=== PATIENT | female | born 1985 | race Caucasian/White ===

== ENCOUNTER 2023-11-18 16:31 | Inpatient (IN) ==
[2023-11-18 18:10] LABS: ABS Basophils 0.1 10^3/uL (0.0-0.1); ABS Eosinophils 0.1 10^3/uL (0.0-0.5); ABS Lymphocytes 1.9 10^3/uL (1.0-4.8); ABS Monocytes 0.5 10^3/uL (0.0-0.9); ABS Neutrophils 5.7 10^3/uL (1.5-7.6); Eosinophil % 0.8 %; Hematocrit 40.8 % (35-45); Hemoglobin 13.9 g/dL (11.5-14.3); Lymphocyte % 23.3 %; Mean Corpuscular Hemoglobin 30.7 pg (27-33); Mean Corpuscular Hgb Conc 34.1 g/dL (31-36); Mean Corpuscular Volume 90.1 fL (80-97); Mean Platelet Volume 8.5 fL (7.5-11.2); Platelet Count 233 10^3/uL (150-450); Red Blood Count 4.53 10^6/uL (3.63-4.92); Red Cell Distribution Width 12.7 % (12-17); White Blood Count 8.3 10^3/uL (3.8-11.8)
[2023-11-18 18:15] LABS: Urine Appearance Turbid; Urine Bilirubin Negative (Negative); Urine Blood 3+ (Negative); Urine Color Colorless; Urine Glucose Negative (Negative); Urine Ketones 1+ (Negative); Urine Nitrite Negative (Negative); Urine Protein Trace (Negative); Urine Specific Gravity 1.009 (1.002-1.030); Urine Urobilinogen Negative (Negative); Urine pH 5.5 (5.0-8.0)
[2023-11-18 18:28] LABS: Urine Benzodiazepine Screen Presumptive Positive (None Detect); Urine Cannabinoids Screen Presumptive Positive (None Detect); Urine Opiates Screen None Detected (None Detect)
[2023-11-18 18:33] LABS: ALT 22 U/L (7-52); AST 29 U/L (13-39); Acetaminophen < 15 mcg/mL; Albumin 4.5 g/dL (3.2-5.2); Albumin/Globulin Ratio 1.7 (1-3); Alcohol, S < 13 mg/dL (<13); Alkaline Phosphatase 43 U/L (35-149); Anion Gap 7 mmol/L (2-16); Blood Urea Nitrogen 8 mg/dL (6-24); CO2 Carbon Dioxide 25 mmol/L (22-32); Calcium 9.5 mg/dL (8.6-10.3); Chloride 106 mmol/L (101-111); Creatinine, Serum 0.86 mg/dL (0.51-0.95); Globulin 2.6 g/dL (2-4); Glucose 92 mg/dL (70-100); Potassium 3.7 mmol/L (3.5-5.0); Salicylate < 2.50 mg/dL (<30); Sodium 138 mmol/L (135-145); Total Bilirubin 0.6 mg/dL (0.2-1.0); Total Protein 7.1 g/dL (6.4-8.9); eGFR CKD-EPI 90.3 (>60)
[2023-11-18 18:40] LABS: HCG Pregnancy < 0.60 mIU/mL
[2023-11-18 18:42] LABS: Urine Bacteria 2+ /HPF (Absent); Urine Red Blood Cell 3+(>10/hpf) /HPF (0-Trace); Urine Squamous Epithelial Cell Present /HPF (Absent); Urine White Blood Cell 2+(11-20/hpf) /HPF (0-Trace)
[2023-11-18 18:49] LABS: TSH Ultra Thyroid Stim Horm 2.24 mcIU/mL (0.34-5.60)
[2023-11-18] MEDS ORDERED: Al Hydrox/Mg Hydrox/Simet LIQ 30 ML UDC PO PRN (23:44)
[2023-11-19 08:25] LABS: HDL Cholesterol 58.4 mg/dL
[2023-11-19] MEDS: Nicotine PATCH 14 MG/24 HR PATCH TRANSDERM SCH (14:56)
[2023-11-19] MEDS: Vitamin THERAPEUTIC TAB PO SCH (14:56)
[2023-11-19] MEDS: Ondansetron ODT 4 mg TAB 4 MG TAB PO PRN (20:16)
[2023-11-20] MEDS: Multivitamins/Minerals TAB PO SCH (09:14)
== END 2023-11-23 12:18 | disposition home or self-care (01) | DRG 775 ==
LOC: ED 16:31 → EDHOLD 21:50 → BSU 11-19 00:32
PROVIDERS: ADMIT Psychiatry & Neurology Psychiatry; ATTEND Student in an Organized Health Care Education/Training Program